=== PATIENT | male | born 1980 | race Caucasian/White ===

== ENCOUNTER → 2020-09-27 10:16 | Outpatient (CLI) | payer OTHER, SELFPAY ==
--- NOTE | 2020-09-27 10:21 | CA_ITS ---
APPROVED REPORT EXAM: Comprehensive 2D, Doppler, and color-flow Echocardiogram Shuttle Veneering Supervisor: Sophia Cuba RVT Ht: 5 ft 10 in Wt: 305lbs BSA: 2.50 BP: 121/75 mmHg Indications: A-FIB,POST COVID,HOME O2, Obesity TDS-BODY HABITUS 2D Dimensions LVOT 2.38 cm (M/F) 1.5-2.5 M-Mode Dimensions RVDd 2.94 cm (0.9-2.6) LA Diam 4.06 cm (1.9-4.0) LVDd 4.79 cm (3.5-5.7) Ao Diam 3.25 cm (2.0-3.7) LVDs 3.30 cm (3.5-5.7) IVSd 1.08 cm (0.6-1.1) PWd 0.93 cm (0.6-1.1) EF (Teich) 58.80% FS 31.10% EDV (Teich) 107.00 mL ESV (Teich) 44.10 mL Pulmonary Valve PV Peak Velocity 61.00 (50-150 cm/s) Left Ventricle Left atrium is mildly enlarged, left ventricle is normal size, there is no concentric left ventricular hypertrophy, visually estimated ejection fraction 50% with no regional wall motion abnormality, diastolic parameters are inconclusive. Right Ventricle Right atrium and right ventricle are normal size and contractility. Aortic Valve Aortic valve is grossly normal, there is no aortic stenosis or aortic insufficiency. Mitral Valve Mitral valve is grossly normal, there is trace mitral regurgitation. Tricuspid Valve Tricuspid valve is grossly normal, there is trace tricuspid regurgitation, tricuspid regurgitation jet velocity is inadequate for calculation of the right ventricular systolic pressure. Pulmonic Valve Pulmonic valve is poorly visualized. Great Vessels Aortic root is normal size. Pericardium Trivial pericardial effusion noted. Conclusion 1. Mildly enlarged left atrium, normal left ventricular size, visually estimated ejection fraction 50% normally, diastolic parameters are inconclusive. 2. Trace mitral and tricuspid regurgitation. 3. Trivial pericardial effusion noted. Electronically signed by : Kennedy Sheppard, 09/28/2020 15:38:03
== END ==
PROVIDERS: PCP Nurse Practitioner Family; Visit Provider Internal Medicine
DX: I48.91 Unspecified atrial fibrillation (principal); R94.31 Abnormal electrocardiogram [ECG] [EKG]
CPT/HCPCS: 93306

== ENCOUNTER → 2020-10-11 12:28 | Outpatient (CLI) | payer OTHER, SELFPAY ==
[2020-10-11 13:10] LABS: Basophils # 0.1 K/mm3 (0-0.2); Basophils % 0.8 % (0.1-2.0); Eosinophils # 0.2 K/mm3 (0.0-0.4); Eosinophils % 2.5 % (0.1-12.0); Hematocrit 49.6 % (42.0-52.0); Hemoglobin 16.1 g/dL (14.1-18.0); Lymphocytes # 2.5 K/mm3 (0.7-4.5); Lymphocytes % 31.5 % (10-50); Mean Corpuscular HGB Conc 32.5 g/dL (31.8-35.4); Mean Corpuscular Hemoglobin 31.6 pg (27.0-31.2); Mean Corpuscular Volume 97.1 fl (80-94); Mean Platelet Volume 7.7 fl (7.4-10.4); Monocytes # 0.4 K/mm3 (0.1-1.0); Monocytes % 4.9 % (1.7-9.3); Neutrophils # 4.7 K/mm3 (1.8-7.8); Neutrophils % 60.3 % (37.0-80.0); Platelet Count 168 K/mm3 (142-424); Red Cell Distribution Width 14.8 % (11.5-17.5); White Blood Count 7.8 K/mm3 (4.8-10.8)
[2020-10-11 13:31] LABS: Chloride 106 mmol/L (98-107); Sodium 138 mmol/L (136-145)
[2020-10-11 13:32] LABS: Potassium 4.3 mmoL/L (3.5-5.1)
[2020-10-11 13:34] LABS: Blood Urea Nitrogen 21 mg/dl (9-20); Estimated Glomerular Filt Rate 82 ml/min (>60); GFR (African American) 99 ML/MIN (>60)
[2020-10-11 13:35] LABS: Anion Gap 8.3 mEq/L (5-15); Calcium 9.1 mg/dl (8.4-10.2); Carbon Dioxide 28 mmol/L (22.0-30.0); Glucose 95 mg/dl (74-100)
[2020-10-11 14:06] LABS: Coronavirus 19 IgG Antibody Positive (Negative); Coronavirus 19 IgM Antibody Negative (Negative)
== END ==
PROVIDERS: Visit Provider Internal Medicine
DX: Z01.812 Encounter for preprocedural laboratory examination (principal); Z20.822 Contact with and (suspected) exposure to COVID-19; Z86.16 Personal history of COVID-19
CPT/HCPCS: 36415; 80048; 85025; 86328

== ENCOUNTER 2020-10-12 12:33 | Day surgery (SDC) | payer OTHER, SELFPAY ==
[2020-10-12 12:43] VITALS: BMI 42.6
--- NOTE | 2020-10-12 12:45 | CA_ITS ---
APPROVED REPORT EXAM: Comprehensive 2D, Doppler, and color-flow Echocardiogram Hand Decorator: Sophia Cuba DANIEL Ht: 5 ft 10 in Wt: 297lbs BSA: 2.47 BP: 90/63 mmHg Indications: A-FIB,HX COVID,MYOCARDITIS,EDEMA,HX GASTRIC SLEEVE Procedure After obtaining informed consent, patient underwent transesophageal echo in the Spray Operator. Type of Sedation : Conscious Sedation Sedation was administered by Ishmael Johnson CGrazynaR.N.A. Transesophageal probe was inserted and advanced into esophagus without difficulty by Dr. Fernanda Foley. The ROLA was performed without complications. Synchronized Cardioversion attempted: Successful Synchronized Cardioversion acheived with 200 Joules after 3 attempt(s). Rhythm following Synchronized Cardioversion: Normal Sinus Rhythm Throughout the procedure, the blood pressure, pulse oximetry, cardiac rhythm, and rate were monitored. The patient tolerated the procedure without adverse effects. Recovery from conscious sedation was uneventful and vital signs were stable. Left Ventricle Left ventricle is normal size and function, visually estimated ejection fraction in the obtained views is approximately 50% with no regional wall motion abnormality. Right Ventricle Right ventricle is mildly enlarged with normal contractility. Atria Left atrium is mildly enlarged, left atrial appendage free of thrombus, there is good appendage flow by spectral Doppler. Right atrium is mildly enlarged. Intra-atrial septum is intact, there is no flow across the interatrial septum, agitated saline contrast study fails to identify intracardiac shunt. Aortic Valve Aortic valve is grossly normal, there is no aortic stenosis or aortic insufficiency. Mitral Valve Mitral valve is grossly normal, there is mild mitral regurgitation. Tricuspid Valve Tricuspid valve grossly normal, there is trace tricuspid regurgitation. Pulmonic Valve Pulmonic valve is grossly normal. Great Vessels Aortic root is normal size. Normal Pericardium No significant pericardial effusion noted. Conclusion 1. Mild biatrial enlargement, normal left ventricular size, visually estimated ejection fraction 50% with no obvious regional wall motion abnormality. 2. Mildly enlarged right ventricle with normal contractility. 3. No thrombus seen in the left atrium or left atrial appendage. 4. Successful electrical cardioversion to restore sinus rhythm. 5. Other ancillary findings as described above. Electronically signed by : Kennedy Sheppard, 10/13/2020 09:35:22
[2020-10-12 13:07] VITALS: PULSE 72
[2020-10-12 13:08] VITALS: BP 116/65; PULSE 75; RESP 16; TEMP 36.9; O2SAT 96
[2020-10-12 13:35] VITALS: BP 111/62; PULSE 61; PULSE 90; RESP 16; O2SAT 92
[2020-10-12 13:48] VITALS: BP 119/62; PULSE 53; RESP 16; O2SAT 96
--- NOTE | 2020-10-12 13:48 | P.PN_ITS ---
[facility] Anesthesia Checklist - Patient Identification Patient Identification: Arm Band - Structural Data Admitted From: Home Planned Operative Procedure/s: ROLA/Cardioversion Consent for Planned Operative Procedure(s) Verified: Yes Verified Documents: Surgical Consent, History and Physical - NPO Status Verified Time NPO: 00:00 - Additional verifications Anesthesia Reactions: No - Airway Assessment C-Spine Mobility Assessed: Yes (mp2) TMJ Mobility Assessed: Yes Dentition: Poor Dentition - Neurological Assessment Level of Consciousness: Awake, Alert - Anesthesia Plan Anesthesia Risk discussed: Yes Anesthesia Plan: Verified ASA Class: III Anesthesia Type: MAC [facility] History I have reviewed the patient's past medical history: Yes Medical History: Reports:: Atrial Fibrillation, Hiatal Hernia *Have you ever received a pneumonia vaccine?: No *Have you received a flu vaccine this season?: No Anesthesia experience/problems:: nac Other Surgeries: Yes: Bariatric Surgery, Hernia Repair - *Social History Smoking Status: Never smoker Alcohol Intake: never Alcohol Intake Frequency:: 0-2 drinks per day Substance Use Type: denies use *Occupational Status:: employed Housing: house Household Members: spouse *Travel in the last 8 weeks: None Family Hx:: Unable to obtain
== END 2020-10-12 14:30 ==
LOC: CATHLAB 12:36
PROVIDERS: PCP Nurse Practitioner Family; Visit Provider Internal Medicine Cardiovascular Disease
DX: I48.91 Unspecified atrial fibrillation (principal); I31.3 Pericardial effusion (noninflammatory); R06.00 Dyspnea, unspecified; Z79.01 Long term (current) use of anticoagulants; Z79.899 Other long term (current) drug therapy
CPT/HCPCS: 92960; 93312

== ENCOUNTER → 2020-12-29 15:51 | Outpatient (CLI) | payer OTHER, SELFPAY ==
[2020-12-29 17:07] LABS: Coronavirus 19 IgG Antibody Positive (Negative); Coronavirus 19 IgM Antibody Negative (Negative)
== END ==
PROVIDERS: Visit Provider Internal Medicine Gastroenterology
DX: Z01.812 Encounter for preprocedural laboratory examination (principal); Z20.822 Contact with and (suspected) exposure to COVID-19; Z13.810 Encounter for screening for upper gastrointestinal disorder
CPT/HCPCS: 36415; 86328

== ENCOUNTER 2021-01-01 12:42 | Day surgery (SDC) | payer OTHER, SELFPAY ==
[2020-12-26 13:42] VITALS: BMI 40.8
[2021-01-01 13:00] VITALS: BP 130/79; PULSE 51; RESP 18; TEMP 36.4; O2SAT 100
[2021-01-01 13:29] VITALS: O2SAT 96
--- NOTE | 2021-01-01 13:32 | P.PCN_ITS ---
[facility] Procedure Note Procedure Note:: Upper Endoscopy Procedure Report: Esophagogastroduodenoscopy with cold biopsies and TTS balloon dilation Endoscopost: Carlos Butts II, MD Referring Physician: Daryn Ennis MD/Thais Santiago NP Date of Procedure: January 01, 2021 Equipment: Olympus GIF 190 standard upper endoscope Sedation: MAC sedation Indications: Mr. Cervantes is a 40-year-old gentleman with heartburn and reflux. He does take omeprazole when necessary. He also has had some dysphagia and choking postprandially. He does get some intermittent dyspepsia. He reports early satiety since his gastric sleeve surgery 4 to 5 years ago. Prior to gastric sleeve, the patient did have a LAP-BAND twice. He reports no nausea, bloating or belching. He has had more issues since Covid. He did have a CT scan of the chest showing a hiatal hernia. He reports regular bowel function. He reports no family history of esophageal or gastric cancer. He has had no melanotic stools. Procedure: Prior to the procedure, a history and physical exam was performed, and patient's medications and allergies were reviewed. The risks, benefits and alternatives of the sedation and procedure were discussed with the patient. All questions were answered and informed consent was obtained. The patient was brought to the procedure room. Patient identification and proposed procedure were verified by the physician and the nurse. The patient was placed in a left lateral decubitus position and the scope was passed under direct vision. Throughout the procedure, the patient's blood pressure, pulse, and oxygen saturations were monitored continuously. The upper GI endoscopy was accomplished without difficulty. The patient tolerated the procedure well. Findings: The scope was passed directly into the upper esophagus and advanced to the third portion of the duodenum. The post bulbar duodenum and duodenal bulb were normal with normal mucosa and conniventes. The scope was withdrawn through a normal duodenal bulb and pylorus into the stomach. There was bile reflux with moderate linear reactive gastropathy and mild chronic gastritis. There was evidence of prior gastric sleeve surgery. Upon retroflexion there was a medium size 3 to 4 cm hiatal hernia. Cold biopsies were taken in the antrum and along the lesser curvature for histology. The scope was then withdrawn into the esophagus. There was evidence of grade C?D reflux esophagitis (LA classification) with distal peptic stricture. Biopsies were taken at the GE junction. The entire esophagus was dilated to 60 Sinhala/20 mm with a TTS hydrostatic balloon. The remainder of the esophageal mucosa was normal. Impression: 1. Grade C?D reflux esophagitis (LA classification) with peptic stricture status post dilation to 20 mm 2. Medium sized (3 to 4 cm) hiatal hernia 3. Prior gastric sleeve surgery with some bile reflux and linear reactive gastropathy as well as mild chronic gastritis Plan: I will follow-up the biopsies. I would recommend regular and daily use of a PPI (omeprazole 40 mg by mouth daily) for complicated GERD. We will discuss additional treatment options.
[2021-01-01 13:46] VITALS: BP 119/57; PULSE 75; RESP 12; TEMP 36.9; O2SAT 92
[2021-01-01 13:56] VITALS: BP 112/58; PULSE 63; RESP 16; O2SAT 95
[2021-01-01 14:06] VITALS: BP 111/60; PULSE 53; RESP 16; O2SAT 95
[2021-01-01 14:16] VITALS: BP 118/53; PULSE 50; RESP 16; TEMP 36.9; O2SAT 97
--- NOTE | 2021-01-01 15:43 | HMH.ANESCL ---
[facility] Anesthesia Checklist - Patient Identification Patient Identification: Arm Band - Structural Data Admitted From: Home Planned Operative Procedure/s: EGD Consent for Planned Operative Procedure(s) Verified: Yes Verified Documents: Surgical Consent, History and Physical - NPO Status Verified Time NPO: 00:00 - Additional verifications Anesthesia Reactions: No - Airway Assessment C-Spine Mobility Assessed: Yes TMJ Mobility Assessed: Yes Dentition: Good Dentition - Neurological Assessment Level of Consciousness: Awake, Alert - Anesthesia Plan Anesthesia Risk discussed: Yes Anesthesia Plan: Verified ASA Class: III Anesthesia Type: MAC [facility] History Medical History: Reports:: Atrial Fibrillation (cardioverted r/t afib sep 2020), Deep Vein Thrombosis ( several years ago from IV stick), Hiatal Hernia Denies:: Cancer, Diabetes Mellitus Type 1, Diabetes Mellitus Type 2, Internal Pacemaker, MRSA, Seizures *Have you ever received a pneumonia vaccine?: No *Have you received a flu vaccine this season?: Yes Anesthesia experience/problems:: None Other Surgeries: Yes: Bariatric Surgery, Hernia Repair. No: Pacemaker Amputation: No - *Social History Last grade of school completed: High school graduate Smoking Status: Never smoker Alcohol Intake: current Alcohol Intake Frequency:: 0-2 drinks per day Substance Use Type: denies use *Occupational Status:: employed Housing: house Household Members: spouse *Travel in the last 8 weeks: None Family Hx:: Unable to obtain
== END 2021-01-01 14:29 | disposition home or self-care (01) ==
LOC: OUTP 12:45
PROVIDERS: PCP Nurse Practitioner Family; Visit Provider Internal Medicine Gastroenterology
PROC: 0DJ08ZZ Inspection of Upper Intestinal Tract, Via Natural or Artificial Opening Endoscopic (ICD-10-PCS; CPT 43235; principal; 2021-01-01 14:00)
DX: K44.9 Diaphragmatic hernia without obstruction or gangrene (principal); K21.9 Gastro-esophageal reflux disease without esophagitis; K31.9 Disease of stomach and duodenum, unspecified; K31.89 Other diseases of stomach and duodenum; Z98.84 Bariatric surgery status; I48.91 Unspecified atrial fibrillation; I73.9 Peripheral vascular disease, unspecified; Z79.899 Other long term (current) drug therapy
CPT/HCPCS: 43239; 43249; C1726

== ENCOUNTER → 2021-06-11 07:20 | Outpatient (CLI) | payer BC, SELFPAY ==
--- NOTE | 2021-06-11 | CA_ITS ---
APPROVED REPORT Exam: Pharmacologic Technologist: Pushpa Barakat Ht: 5 ft 10 in Wt: 323 lbs BSA: 2.56 m2 HR: 53 bpm BP: 109/64 mmHg Medical History Medications: Omeprazole,,,,, BisOPROLOL,,,,, RIvaROXABAN,,,,, Stress Test Details Test: LEXISCAN HR Resting HR: 56 bpm Max Heart Rate (APMHR): 177 bpm Max HR Achieved: 89 bpm Target HR (85% APMHR): 150 bpm % of APMHR: 50 Recovery HR: 57 bpm BP Resting BP: 109.0/64.0 mmHg Max BP: 110.0/54.0 mmHg Recovery BP: 90.0/43.0 mmHg ECG Resting ECG: Sinus bradycardia Clinical Reason for Termination: Completed Protocol Exercise duration: 04:19 min Highest Stage Achieved: Stress ECG Conclusion Symptoms: No chest pain Arrhythmias/Ectopy: Rare PVC ST-T Changes: < 1.[address] segment changes Conclusion: Non-diagnostic. Hypotension with Adenosine. Electronically signed by : Kennedy Sheppard MD 06/11/2021 18:24:14
--- NOTE | 2021-06-11 07:20 | NM_ITS ---
APPROVED REPORT Exam: Nuclear Stress Test Indication: short of breath..fatigue..covid in sep Patient Location: Outpatient Stress Tech: Pushpa Barakat PA Tech:Ida Goodwin WILLIAMSHesham RT(R)(N) Ht: 5 ft 10 in Wt: 320 lbs HR: 53 bpm BP: 109/64 mmHg BSA: 2.55 m2 BMI: 45.9 History: short of breath..fatigue..covid in sep Procedure: Patient received a 0.4 mg of intravenous Lexiscan, resting heart rate 53 bpm, resting blood pressure 109/64 mmHg, with Lexiscan maximum heart rate achived was 87 bpm which is Less than 85 % of the maximum predicted heart rate and blood pressure was 110/54 mmHg. With Lexiscan, patient denied any complaint of chest pain. Electrocardiogram Resting electrocardiogram showed sinus rhythm, with Lexiscan there is less than 1.[address] segment depression noted from the baseline EKG. The EKG portion of the Lexiscan is nondiagnostic. Cardiac Stress and Resting SPECT Images: Cardiac Stress and Resting SPECT images were obtained using technetium 99m Myoview 30.1 mCi stress and 10.41 mCi at rest. Gated SPECT for analysis of segmental wall motion and calculation of the ejection fraction also done, prone images were also obtained. Cardiac stress and resting SPECT images show uniform myocardial activity without segmental perfusion abnormality, computer derived ejection fraction is 46% with no regional wall motion abnormality, right ventricle is normal size and contractility. Conclusion: 1. The EKG portion of the Lexiscan is nondiagnostic. 2. No scintigraphic evidence of reversible ischemia seen, computer derived ejection fraction is 46% with no regional wall motion abnormality, right ventricle is normal size and contractility. 3. Normal Lexiscan Myoview study. Electronically signed by : Kennedy Sheppard MD 06/11/2021 18:38:08
== END ==
PROVIDERS: PCP Nurse Practitioner Family; Visit Provider Nurse Practitioner Family
DX: R06.02 Shortness of breath (principal); I48.0 Paroxysmal atrial fibrillation; R60.9 Edema, unspecified; G47.9 Sleep disorder, unspecified; R40.0 Somnolence
CPT/HCPCS: 78452; 93017; A9502; G0399; J2785

== ENCOUNTER → 2021-07-12 11:40 | Outpatient (CLI) | payer BC, SELFPAY ==
--- NOTE | 2021-07-12 11:51 | XR_ITS ---
PROCEDURE: XR CHEST 2V CLINICAL HISTORY: SOB COMPARISON: No exams were available for comparison FINDINGS: Opacification is present involving the right lung base anteriorly. On the lateral view this has a rounded appearance. Differential diagnosis includes a diaphragmatic hernia, large pericardial cyst, or a pulmonary mass. Recommend chest CT with contrast for further evaluation. Patchy density is present in the right mid lung suggesting an area of infiltrate. Correlation with old films would also be helpful. There none available at this institution. IMPRESSION: Asymmetric increased density in the right lower lung zone anteriorly which may be related to a diaphragmatic hernia, large pericardial cyst/mass, or pulmonary mass. Suggest chest CT with contrast for further evaluation. Patchy infiltrate in the right midlung. Dictated by: Pardeep Crane MD 07/12/2021 12:23 Pardeep Crane MD in [facility] 07/12/2021 12:23
[2021-07-12 12:22] LABS: Basophils # 0.1 K/mm3 (0-0.2); Basophils % 0.8 % (0.1-2.0); Eosinophils # 0.1 K/mm3 (0.0-0.4); Eosinophils % 1.4 % (0.1-12.0); Hematocrit 49.7 % (42.0-52.0); Hemoglobin 16.4 g/dL (14.1-18.0); Lymphocytes # 1.9 K/mm3 (0.7-4.5); Mean Corpuscular HGB Conc 33.1 g/dL (31.8-35.4); Mean Corpuscular Hemoglobin 32.7 pg (27.0-31.2); Mean Platelet Volume 7.5 fl (7.4-10.4); Monocytes # 0.5 K/mm3 (0.1-1.0); Monocytes % 7.9 % (1.7-9.3); Neutrophils # 4.1 K/mm3 (1.8-7.8); Neutrophils % 61.9 % (37.0-80.0); Platelet Count 222 K/mm3 (142-424); Red Blood Count 5.02 M/mm3 (4.60-6.20); Red Cell Distribution Width 12.9 % (11.5-17.5); White Blood Count 6.7 K/mm3 (4.8-10.8)
[2021-07-12 12:43] LABS: D-Dimer 0.35 ug/mL (0.0-0.5)
[2021-07-12 12:50] LABS: C-Reactive Protein 0.9 mg/L (0-4)
[2021-07-16 04:42] LABS: D001-IgE D pteronyssinus 1.28 kU/L (Class II); D002-IgE D farinae 1.31 kU/L (Class II); E001-IgE Cat Dander 0.45 kU/L (Class I); E005-IgE Dog Dander 1.31 kU/L (Class II); E072-IgE Mouse Urine <0.10 kU/L (Class 0); G002-IgE Bermuda Grass 6.51 kU/L (Class IV); G006-IgE Timothy Grass 7.91 kU/L (Class IV); I006-IgE Cockroach, German 1.03 kU/L (Class II); Immunoglobulin E, Total 299 IU/mL (6-495); M001-IgE Penicillium chrysogen <0.10 kU/L (Class 0); M002-IgE Cladosporium herbarum <0.10 kU/L (Class 0); M003-IgE Aspergillus fumigatus <0.10 kU/L (Class 0); M006-IgE Alternaria alternata <0.10 kU/L (Class 0); T001-IgE Maple/Box Elder 2.82 kU/L (Class III); T003-IgE Common Silver Birch 4.57 kU/L (Class IV); T006-IgE Cedar, Mountain 0.59 kU/L (Class II); T007-IgE Oak, White 2.92 kU/L (Class III); T008-IgE Elm, American 2.66 kU/L (Class III); T011-IgE Maple Leaf Sycamore 2.54 kU/L (Class III); T014-IgE Cottonwood 1.65 kU/L (Class III); T015-IgE Ash, White 4.82 kU/L (Class IV); T022-IgE Pecan, Hickory 3.49 kU/L (Class III); T070-IgE White Mulberry 0.13 kU/L (Class 0/I); W001-IgE Ragweed, Short 3.12 kU/L (Class III); W011-IgE Thistle, Russian 2.38 kU/L (Class III); W014-IgE Pigweed, Common 1.29 kU/L (Class II); W018-IgE Sheep Sorrel 2.52 kU/L (Class III)
== END ==
PROVIDERS: Visit Provider Internal Medicine Pulmonary Disease
DX: R06.00 Dyspnea, unspecified (principal); J45.909 Unspecified asthma, uncomplicated; I26.99 Other pulmonary embolism without acute cor pulmonale; Z86.16 Personal history of COVID-19
CPT/HCPCS: 36415; 71046; 82785; 85025; 85378; 86003; 86140

== ENCOUNTER → 2021-08-01 15:21 | Outpatient (CLI) | payer BC, SELFPAY ==
--- NOTE | 2021-08-01 15:25 | CT_ITS ---
PROCEDURE INFORMATION: Exam: CT Chest Without Contrast; Diagnostic Exam date and time: 08/01/2021 3:25 PM Age: 41 years old Clinical indication: Shortness of breath; Patient HX: Abnormal cxr. PT states he has been SOB ever since he had covid in 09/2020 TECHNIQUE: Imaging protocol: Diagnostic computed tomography of the chest without contrast. Radiation optimization: All CT scans at this facility use at least one of these dose optimization techniques: automated exposure control; mA and/or kV adjustment per patient size (includes targeted exams where dose is matched to clinical indication); or iterative reconstruction. COMPARISON: CT CHEST W/CONTRAST 09/13/2020 7:18 PM FINDINGS: Lungs: Bronchiectasis in the lower lobes. Mild panlobular emphysematous changes. Pleural spaces: Unremarkable. No pneumothorax. No pleural effusion. Heart: Unremarkable. No cardiomegaly. No pericardial effusion. Aorta: Unremarkable. No aortic aneurysm. Lymph nodes: Calcified mediastinal nodes may reflect prior granulomatous disease Bones/joints: Scoliosis Soft tissues: Unremarkable. IMPRESSION: No acute process
== END ==
PROVIDERS: PCP Nurse Practitioner Family; Visit Provider Internal Medicine Pulmonary Disease
DX: R93.89 Abnormal findings on diagnostic imaging of other specified body structures (principal); U09.9 Post COVID-19 condition, unspecified
CPT/HCPCS: 71250

== ENCOUNTER → 2022-08-06 09:13 | Outpatient (CLI) | payer OTHER, SELFPAY ==
--- NOTE | 2022-08-06 09:14 | CA_ITS ---
APPROVED REPORT EXAM: Comprehensive 2D, Doppler, and color-flow Echocardiogram Metal Refiner: Amanda Parrish RT(R) Ht: 5 ft 10 in Wt: 318lbs BSA: 2.54 BP: 124/69 mmHg Indications: Palpitations, edema, DENNIS, obesity, history of AFIB and cardioversion, AFIB 2D Dimensions LVOT 2.26 cm (M/F) 1.5-2.5 M-Mode Dimensions RVDd 3.14 cm (0.9-2.6) LA Diam 3.62 cm (1.9-4.0) LVDd 5.76 cm (3.5-5.7) Ao Diam 3.41 cm (2.0-3.7) LVDs 3.90 cm (3.5-5.7) IVSd 0.93 cm (0.6-1.1) PWd 0.72 cm (0.6-1.1) EF (Teich) 59.80% FS 32.30% EDV (Teich) 163.90 mL ESV (Teich) 65.90 mL LV Diastology E Decel Time 190.00 (160-240 msec) E/A Ratio 1.64 MED E' 14.30 (< 7 cm/sec) E'/MED E' Ratio 5.97 (>14) LAT E' 13.80 (<10 cm/sec) E/LAT E' Ratio 6.19 (>14) Mitral Valve MV A Velocity 52.00 (40-130 cm/s) E/A Ratio 1.64 MV Decel. Time 190.00 (160-240 ms) Left Ventricle Left atrium is mildly enlarged, left ventricle normal size, estimated ejection fraction 55% with no regional wall motion abnormality, diastolic parameters are inconclusive. Right Ventricle Right atrium and right ventricle are mildly enlarged with normal contractility. Aortic Valve Aortic valve is minimally thickened and fibrosed there is no aortic stenosis aortic insufficiency. Mitral Valve Mitral valve grossly normal, there is trace mitral regurgitation. Tricuspid Valve Tricuspid valve grossly normal, there is trace tricuspid regurgitation, tricuspid regurgitation jet velocity is inadequate for calculation of the right ventricular systolic pressure. Pulmonic Valve Pulmonic valve is poorly visualized. Great Vessels Aortic root is normal size. Inferior vena cava is poorly visualized. Pericardium No significant pericardial effusion noted. Conclusion 1. Mild biatrial enlargement, normal left ventricular size, mild concentric left ventricular hypertrophy, estimated ejection fraction 55% with no regional wall motion abnormality, diastolic parameters are inconclusive in the study. 2. Mildly enlarged right ventricle with normal contractility. 3. Trace mitral and tricuspid regurgitation. 4. No significant pericardial effusion. 5. Inferior vena cava is poorly visualized. Electronically signed by : Kennedy Sheppard MD 08/06/2022 20:31:11
== END ==
PROVIDERS: PCP Nurse Practitioner Family; Visit Provider Nurse Practitioner Family
DX: R06.02 Shortness of breath (principal); R00.2 Palpitations; I48.0 Paroxysmal atrial fibrillation
CPT/HCPCS: 93306

== ENCOUNTER → 2022-10-04 12:21 | Outpatient (CLI) | payer OTHER, SELFPAY ==
[2022-10-04 13:47] LABS: Basophils % 0.6 % (0.1-2.0); Eosinophils # 0.2 K/mm3 (0.0-0.4); Eosinophils % 2.2 % (0.1-12.0); Hematocrit 50.8 % (42.0-52.0); Hemoglobin 16.6 g/dL (14.1-18.0); Lymphocytes # 1.8 K/mm3 (0.7-4.5); Lymphocytes % 26.8 % (10-50); Mean Corpuscular HGB Conc 32.7 g/dL (31.8-35.4); Mean Corpuscular Hemoglobin 31.2 pg (27.0-31.2); Mean Corpuscular Volume 95.4 fl (80-94); Mean Platelet Volume 7.2 fl (7.4-10.4); Monocytes # 0.5 K/mm3 (0.1-1.0); Monocytes % 7.2 % (1.7-9.3); Neutrophils # 4.2 K/mm3 (1.8-7.8); Neutrophils % 63.3 % (37.0-80.0); Platelet Count 182 K/mm3 (142-424); Red Blood Count 5.33 M/mm3 (4.60-6.20); White Blood Count 6.6 K/mm3 (4.8-10.8)
[2022-10-04 14:03] LABS: Chloride 108 mmol/L (98-107)
[2022-10-04 14:04] LABS: Potassium 4.2 mmoL/L (3.5-5.1); Sodium 141 mmol/L (136-145)
[2022-10-04 14:06] LABS: Alanine Aminotransferase 21 U/L (12-78); Anion Gap 11.2 mEq/L (5-15); Aspartate Amino Transferase 26 U/L (17-59); Bilirubin,Unconjugated 0.7 mg/dL (0.0-1.1); Blood Urea Nitrogen 12 mg/dl (9-20); Carbon Dioxide 26 mmol/L (22.0-30.0); Estimated Glomerular Filt Rate 92 ml/min (>60); GFR (African American) 111 ML/MIN (>60)
[2022-10-04 14:07] LABS: Albumin Level 4.2 g/dl (3.5-5.0); Alkaline Phosphatase 74 U/L (38-126); Bilirubin,Direct 0.2 mg/dl (0.0-0.4); Bilirubin,Indirect 0.8 mg/dL (0.0-0.9); Chol/HDL Ratio 3.7 (1-3.5); Cholesterol 146 mg/dl (140-200); Glucose 85 mg/dl (74-100); HDL Cholesterol 39 mg/dl (40-60); Total Protein,Serum 7.1 g/dl (6.3-8.2); Triglycerides 126 mg/dl (30-150); VLDL Cholesterol 25 mg/dL (0-40)
[2022-10-04 14:13] LABS: C-Reactive Protein 1.4 mg/L (0-4)
[2022-10-04 14:18] LABS: Direct LDL Cholesterol 87.24 mg/dL (100-129); Erythrocyte Sedimentation Rate 1 mm/hr (0-15)
[2022-10-04 14:26] LABS: Free T4 (Free Thyroxine) 1.27 ng/dl (0.78-2.19)
[2022-10-17 01:00] LABS: 1,25 Dihydroxy Vitamin D 31 pg/mL (.); 1,25-Dihydroxy, Vitamin D-2 <10 pg/mL (.); 1,25-Dihydroxy, Vitamin D-3 30 pg/mL (.)
== END ==
PROVIDERS: PCP Nurse Practitioner Family; Visit Provider Internal Medicine
DX: R06.02 Shortness of breath (principal); R07.9 Chest pain, unspecified; R42 Dizziness and giddiness; I48.0 Paroxysmal atrial fibrillation; R53.83 Other fatigue
CPT/HCPCS: 36415; 80048; 80061; 80076; 82652; 83735; 84439; 84443; 85025; 85651; 86140

== ENCOUNTER → 2023-04-07 14:55 | Outpatient (CLI) | payer OTHER, SELFPAY | PROVIDERS: Visit Provider Internal Medicine Pulmonary Disease | DX: R06.02 Shortness of breath (principal) | CPT/HCPCS: 94762 ==

== ENCOUNTER 2023-11-10 12:07 | Outpatient (CLI) | payer OTHER, SELFPAY ==
[2023-11-10 12:35] LABS: Basophils # 0.1 K/mm3 (0-0.2); Basophils % 1.1 % (0.1-2.0); Eosinophils # 0.1 K/mm3 (0.0-0.4); Eosinophils % 1.4 % (0.1-12.0); Hematocrit 53.3 % (42.0-52.0); Hemoglobin 17.4 g/dL (14.1-18.0); Lymphocytes # 1.8 K/mm3 (0.7-4.5); Lymphocytes % 26.2 % (10-50); Mean Corpuscular HGB Conc 32.6 g/dL (31.8-35.4); Mean Corpuscular Volume 98.3 fl (80-94); Mean Platelet Volume 7.8 fl (7.4-10.4); Monocytes # 0.5 K/mm3 (0.1-1.0); Monocytes % 7.5 % (1.7-9.3); Neutrophils # 4.4 K/mm3 (1.8-7.8); Neutrophils % 63.8 % (37.0-80.0); Platelet Count 253 K/mm3 (142-424); Red Blood Count 5.42 M/mm3 (4.60-6.20); Red Cell Distribution Width 14.7 % (11.5-17.5)
[2023-11-10 13:00] LABS: Alanine Aminotransferase 28 U/L (12-78); Albumin Level 4.7 g/dl (3.5-5.0); Alkaline Phosphatase 97 U/L (38-126); Anion Gap 12.3 mEq/L (5-15); Aspartate Amino Transferase 29 U/L (17-59); Bilirubin,Indirect 0.9 mg/dL (0.0-0.9); Bilirubin,Total 0.9 mg/dl (0.2-1.3); Bilirubin,Unconjugated 0.9 mg/dL (0.0-1.1); Blood Urea Nitrogen 17 mg/dl (9-20); Calcium 9.7 mg/dl (8.4-10.2); Carbon Dioxide 26 mmol/L (22.0-30.0); Chloride 107 mmol/L (98-107); Chol/HDL Ratio 3.6 (1-3.5); Cholesterol 178 mg/dl (140-200); Estimated Glomerular Filt Rate 81 ml/min (>60); GFR (African American) 98 ML/MIN (>60); Glucose 92 mg/dl (74-100); HDL Cholesterol 49 mg/dl (40-60); Magnesium 2.1 mg/dl (1.6-2.3); Potassium 4.3 mmoL/L (3.5-5.1); Sodium 141 mmol/L (136-145); Total Protein,Serum 7.4 g/dl (6.3-8.2); Triglycerides 75 mg/dl (30-150); VLDL Cholesterol 15 mg/dL (0-40)
[2023-11-10 13:09] LABS: NT Pro Brain Natriuretic Pep. 24.6 pg/mL (0-125)
[2023-11-10 13:13] LABS: C-Reactive Protein 1.3 mg/L (0-4); Direct LDL Cholesterol 94.54 mg/dL (100-129)
[2023-11-10 13:20] LABS: Free T4 (Free Thyroxine) 1.15 ng/dl (0.78-2.19)
[2023-11-10 13:21] LABS: 25-OH Vitamin D, Total 34.5 ng/mL (30-100)
[2023-11-10 13:31] LABS: Thyroid Stimulating Hormone 3.21 uIU/mL (0.465-4.68)
[2023-11-10 14:14] LABS: Erythrocyte Sedimentation Rate 2 mm/hr (0-15)
== END 2023-11-10 23:59 ==
LOC: LAB 12:08
PROVIDERS: PCP Nurse Practitioner Family; Visit Provider Internal Medicine
DX: R06.09 Other forms of dyspnea (principal); R00.2 Palpitations; I48.0 Paroxysmal atrial fibrillation; R60.9 Edema, unspecified; E66.01 Morbid (severe) obesity due to excess calories; Z68.41 Body mass index [BMI] 40.0-44.9, adult; Z79.899 Other long term (current) drug therapy
CPT/HCPCS: 36415; 80048; 80061; 80076; 82306; 83735; 83880; 84439; 84443; 85025; 85651; 86140; 93270

== ENCOUNTER 2023-11-25 11:19 | Outpatient (CLI) | payer OTHER, SELFPAY ==
--- NOTE | 2023-11-25 11:19 | CA_ITS ---
APPROVED REPORT EXAM: Comprehensive 2D, Doppler, and color-flow Echocardiogram Jewelry Casting Model Maker Apprentice: XIAO Siegel, RVS Ht: 5 ft 10 in Wt: 314lbs BSA: 2.53 BP: 118/85 mmHg Indications: Dyspnea, Afib, Obesity, DENNIS, Palpitations, Edema 2D Dimensions Left Atrium 3.90 cm LA Volume 63.60 mL LA Volume Index 25.634031 mL/m2 (M/F) 16-34 EF AP4 68.30 % GL Strain -25.2 % M-Mode Dimensions RVDd 2.29 cm (0.9-2.6) LA Diam 4.14 cm (1.9-4.0) LVDd 5.92 cm (3.5-5.7) LVDs 3.95 cm (3.5-5.7) IVSd 1.26 cm (0.6-1.1) PWd 1.30 cm (0.6-1.1) EF (Teich) 61.10% EPSs 1.35 cm FS 33.30% EDV (Teich) 174.60 mL TAPSE 1.88 (<1.7) ESV (Teich) 67.90 mL LV Diastology E Decel Time 200 (160-240 msec) E/A Ratio 1.81 MED A' 12.50 cm/s LAT A' 8.40 cm/s Aortic Valve VIRGILIO Index 1.24 cm2/m2 AoV Peak Rajesh. 113.0 (50-130 cm/s) AO Peak GR. 5.10 mmHg AO Mean GR. 2.60 (<5 mmHg) AO VTI 23.4 (18-25 cm) VIRGILIO (VTI) 3.21 (2.5-4.5 cm2) Mitral Valve MV A Velocity 61.0 (40-130 cm/s) E/A Ratio 1.81 MV Mean Gr. 2.10 (<2mmHg) Pulmonary Valve PV Peak Velocity 107.0 (50-150 cm/s) Left Ventricle The left ventricle is normal size. The left ventricular systolic function is normal. The left ventricular ejection fraction is within the normal range. There is normal left ventricular wall thickness. There is normal LV segmental wall motion. The left ventricular diastolic function is normal. LVEF is 60%. Right Ventricle The right ventricle is normal size. The right ventricular systolic function is normal. Atria The left atrium size is normal. The right atrium size is normal. There is no Doppler evidence of interatrial shunt. Aortic Valve The aortic valve opens well. There is no aortic valvular stenosis. No aortic regurgitation is present. Mitral Valve The mitral valve is normal in structure. No evidence of mitral valve stenosis. There is no mitral valve regurgitation noted. Tricuspid Valve The tricuspid valve leaflets are thin and pliable. Trace tricuspid regurgitation. There is insufficient TR jet to estimate RVSP. Pulmonic Valve The pulmonary valve is normal in structure. Trace pulmonic regurgitation. Great Vessels The aortic root is normal in size. The ascending aorta is normal in size. IVC is normal in size and collapses >50% with inspiration. Pericardium There is no pericardial effusion. Other Information Study Quality: Adequate Conclusion Normal biventricular systolic function. No significant valvular stenosis or regurgitation. Electronically signed by : Noemi Beltran MD 11/26/2023 12:37:49
== END 2023-11-25 23:59 ==
LOC: RT 11:19
PROVIDERS: PCP Nurse Practitioner Family; Visit Provider Nurse Practitioner Family
DX: R06.09 Other forms of dyspnea (principal); I48.0 Paroxysmal atrial fibrillation; R00.2 Palpitations; R60.9 Edema, unspecified
CPT/HCPCS: 93306